=== PATIENT | male | born 1955 | race Caucasian/White ===

== ENCOUNTER → 2016-05-14 | Outpatient (CLI) | payer BC ==
[~2016-05-14] MED LIST: ALFALFA; ASPIRIN81 M1 PO; ASPIRINEC PO; CERTAGEN PO; DICLOFENAC PO; FISH OIL 1,0001 CAP PO; FLEXERIL10 M1 PO; NIACIN500 M1 PO; NORVASC PO; RED YEAST RICE600 MG PO; VIT E PO; VITAMIN B 12 PO; VITAMIN C PO; VITAMIN C500 M1 PO; VITAMIN D 4001 UDTAB PO; VITAMIN D-32000 UNIT PO; VOLTAREN75 MG PO; [UNRECOGNIZED DRUG - OTHER] PO
--- NOTE | ~2016-05-14 | CT55 ---
[facility] A Service of [facility] RADIOLOGY TEXT RESULTS PATIENT: CLAUDETTE SALAS LOCATION: [facility] : 53 UNIT #: [id number] AGE: [address]: May Werner SEX: M ORDER DR: [id number] [place], [place] [address] [id number] O MR#: [id number] Acc #: [id number] NAME: CLAUDETTE SALAS : 1955 SEX: M STUDY DATE/TIME: 05/14/2016 13:07 UNIT: [facility] ROOM: STUDY DESCRIPTION: CT Chest W Con Attending Physician: May Werner A.P.R.N. Referring Physician: May Werner A.P.R.N. Ordering Physician: May Werner A.P.R.N. Primary Care Physician: Cookie Rubin A.P.R.N. MEDICAL IMAGING REPORT This report is preliminary unless electronic signature is present EXAM CT chest, 05/14/2016. CLINICAL HISTORY Abnormal findings on chest radiograph. Cough and shortness of air. TECHNIQUE CT of the thorax utilizing 70 mL Isovue-370 IV contrast. Coronal and sagittal reconstructions were obtained. This CT exam was performed with one or more of the following radiation dose reduction techniques: automatic exposure control, adjustment of mA and/or kV according to patient size, and iterative reconstruction. COMPARISON Chest radiograph dated 10/28/2010. FINDINGS The lungs are clear. There is no focal consolidation. Central airways are patent. There is a there is a single calcified granuloma in the right lower lobe. No pericardial or pleural effusion. Thoracic aorta is normal in caliber. No enlarged mediastinal or hilar lymph nodes. No acute osseous abnormalities. IMPRESSION Negative CT scan of the chest. No findings to account for the patient's clinical symptoms. [facility] A Service of [facility] RADIOLOGY TEXT RESULTS PATIENT: CLAUDETTE SALAS LOCATION: [facility] : 53 UNIT #: [id number] AGE: [address]: May Werner SEX: M ORDER DR: Dictated by... Adalberto Mccall M.D. THIS IS AN ELECTRONICALLY VERIFIED REPORT Adalberto Mccall M.D. at 05/17/2016 8:05 AM STEVE/hieu TD: 05/14/2016 17:10 JOB #: [id number] MEDICAL IMAGING REPORT COPY
[2016-05-14 15:10] LABS: POC - CREATININE 0.64 mg/dL (0.64-1.27); POC - GFR >60.0 mL/min (>60)
== END | disposition home or self-care (01) ==
LOC: CCAT 12:27
PROVIDERS: Nurse Practitioner Adult Health
DX: R05 Cough (principal); R06.02 Shortness of breath; R93.8 Abnormal findings on diagnostic imaging of other specified body structures
CPT/HCPCS: 71260; 82565; Q9967